=== PATIENT | female | born 1950 | race African-American/Black ===

== ENCOUNTER 2016-06-06 01:27 | Observation (INO) | payer MEDICARE, OTHER ==
[~2016-06-06] VITALS: Ht 170.2 cm; Wt 99.0 kg
[2016-06-06] VITALS (10 sets, daily range): BP systolic 133–210; BP diastolic 53–91; PULSE 79–111; RESP 16–24; TEMP 97.8–98.9; O2SAT 96–99
[~2016-06-06 01:27] MED LIST: ASPI81 PO; ATOR20TA PO; AZAT50 PO; CYCL1PAK PO; FAMO40TA PO; FURO40TA PO; GABA300 PO; HYDR50TA15 PO; LIDO5T TOP; LORTA5 PO; METO50TA PO; POTA10IN2 PO; PRED5 PO; TAZT300C2 PO
[2016-06-06] MEDS ORDERED: SODIUM CHLOR 0.9% 1000 ML INJ 1,000 ML IV SCH (03:05)
[2016-06-06] MEDS ORDERED: MORPHINE SULFATE 4 MG/ML INJ IV PUSH ONE (03:15)
[2016-06-06] MEDS ORDERED: SODIUM CHLORIDE 0.9% FLUSH 5 ML FLUSH IVF PRN (03:15)
[2016-06-06] MEDS ORDERED: ONDANSETRON HCL 4 MG/2 ML VIAL IVP ONE (03:15)
--- NOTE | 2016-06-06 03:15 | PD ---
HPI Chief Complaint: GI Complaint Time Seen by Provider: 02:58 Travel History International Travel<30 days: No Contact w/Intl Traveler<30days: No Traveled to known affect area: No History of Present Illness HPI The patient is a 65-year-old Joanna female who presents emergency department for nausea, vomiting, and abdominal pain. The patient states she recently had laparoscopic cholecystectomy performed at [facility] in [place], [place]. The patient states the surgery was last and she went home on Friday. The patient states she is not feeling well, however, "just wanted to go home ". The patient has not followed up with her primary physician or return to the emergency department at [facility]. The patient states she continues to have nausea, vomiting, and generalized abdominal pain that is worse in the epigastrium. The patient's last oral intake was on Friday night with soup. She has persistent nausea and vomiting and has not had a bowel movement in several days. The patient is unsure if she is had any fever. She denies any chest pain, shortness of breath , or difficulty with urination. The patient's primary physician is Dr. Veras. [facility] Past Medical History Hx Anticoagulant Therapy: Yes (ASA) Autoimmune Disease: No Cancer: Yes (BREAST 16 years ago) Cardiovascular Problems: Yes (HTN) Chemotherapy: Yes (1996) Diminished Hearing: No Endocrine: No Gastrointestinal Disorders: Yes GERD: Yes Genitourinary: No Hiatal Hernia: Yes Hypertension: Yes Immune Disorder: No Musculoskeletal: Yes Neurologic: No Psychiatric: No Reproductive: No Respiratory: No Immunizations Current: Yes Ulcer: No : 4 Para: 3 Miscarriage: 1 Past Surgical History Cholecystectomy: Yes Gynecologic Surgery: Yes (BREAST CA) Hysterectomy: Yes Other Surgery: Yes (BREAST CA, LUMPECTOMY, LYMPH NODE REMOVAL) Social History Alcohol Use: No Tobacco Use: No Substance Use: No Allergies-Medications (Allergen,Severity, Reaction): Coded Allergies: Naprosyn (Unverified Adverse Reaction, Severe, Diarrhea, 06/06/16) Contrast Media (Verified Adverse Reaction, Intermediate, KIDNEY FAILURE, ) Reported Meds & Prescriptions Reported Meds & Active Scripts Active Lidoderm Patch 5% (Lidocaine HCl) 1 Patch Patch 1 Patch TOP DAILY Hydrocodone/Acetaminophen 5 mg/325 mg 1 Tab Tab 1 Tab PO Q4H PRN Neurontin (Gabapentin) 300 Mg Cap 300 Mg PO TID Reported Potassium Chloride CR 10 meq (Potassium Chloride) 10 Meq Cap 1 Cap PO DAILY Taztia Xt 300 Mg (Diltiazem HCl) 300 Mg Cap 300 Mg PO DAILY Deltasone 5 mg Tab (Prednisone) 5 Mg Tab 5 Mg PO BID Atorvastatin 20 mg (Atorvastatin Calcium) 20 Mg Tab 1 Tab PO HS Furosemide 40 Mg Tab 40 Mg PO DAILY Azathioprine 50 Mg Tab 125 Mg PO DAILY Famotidine 40 Mg Tab 40 Mg PO DAILY Apresoline (Hydralazine HCl) 50 Mg Tab 50 Mg PO TID Aspirin 81 Mg Tab 81 Mg PO DAILY Cyclobenzaprine Hcl (Cyclobenzaprine HCl) 10 Mg Tab 10 Mg PO TID Metoprolol Tartrate 50 mg (Metoprolol Tartrate) 50 Mg Tab 200 Mg PO BID Review of Systems Except as stated in HPI: all other systems reviewed are Neg General / Constitutional: No: Fever Cardiovascular: No: Chest Pain or Discomfort Respiratory: No: Shortness of Breath Gastrointestinal: Positive: Nausea, Vomiting, Abdominal Pain, Loss of Appetite , No: Diarrhea Genitourinary: No: Dysuria Musculoskeletal: Positive: Weakness Neurologic: Positive: Weakness Physical Exam Narrative GENERAL: Awake, alert, 65-year-old female who appears her stated age and is in no acute respiratory distress. SKIN: Warm and dry. HEAD: Atraumatic. Normocephalic. EYES: Pupils equal and round. No scleral icterus. No injection or drainage. ENT: No nasal bleeding or discharge. Dry mucous membranes. NECK: Trachea midline. No JVD. CARDIOVASCULAR: Regular, tachycardic with a heart rate of 125. RESPIRATORY: No accessory muscle use. Clear to auscultation. Breath sounds equal bilaterally. GASTROINTESTINAL: Abdomen soft, obese with a large pannus. Surgical dressings still in place. No rebound tenderness. MUSCULOSKELETAL: No obvious deformities. No clubbing. No cyanosis. No edema. NEUROLOGICAL: Awake and alert. No obvious cranial nerve deficits. Motor grossly within normal limits. Normal speech. PSYCHIATRIC: Appropriate mood and affect; insight and judgment normal. Data Data Last Documented VS Vital Signs Date Time Temp Pulse Resp B/P Pulse Ox O2 Delivery O2 Flow Rate FiO2 06/06/16 01:29 98.9 111 24 183/85 98 Room Air Orders Complete Blood Count With Diff (06/06/16 03:05) Comprehensive Metabolic Panel (06/06/16 03:05) Lipase (06/06/16 03:05) Lactic Acid (06/06/16 03:05) Urinalysis - C+S If Indicated (06/06/16 03:05) Ct Abd/Pel W/O Iv Contrast (06/06/16 03:05) Iv Access Insert/Monitor (06/06/16 03:05) Ecg Monitoring (06/06/16 03:05) Oximetry (06/06/16 03:05) Morphine Inj (Morphine Inj) (06/06/16 03:15) Ondansetron Inj (Zofran Inj) (06/06/16 03:15) Sodium Chlor 0.9% 1000 Ml Inj (Ns 1000 M (06/06/16 03:05) Sodium Chloride 0.9% Flush (Ns Flush) (06/06/16 03:15) Electrocardiogram (06/06/16 03:05) Chest, Single Ap (06/06/16 ) Potassium Chlor 20 Meq Premix (Kcl 20 Me (06/06/16 06:15) Admit Order (Ed Use Only) (06/06/16 06:02) Sodium Chlorid 0.9% 500 Ml Inj (Ns 500 M (06/06/16 06:15) Labs Laboratory Tests Test 06/06/16 06/06/16 04:00 05:15 Urine Color YELLOW Urine Turbidity CLEAR Urine pH 5.5 Urine Specific [place] 1.014 Urine Protein TRACE mg/dL Urine Glucose (UA) NEG mg/dL Urine Ketones 150 mg/dL Urine Occult Blood NEG Urine Nitrite NEG Urine Bilirubin NEG Urine Urobilinogen LESS THAN 2.0 MG/DL Urine Leukocyte Esterase NEG Urine RBC LESS THAN 1 /hpf Urine WBC 1 /hpf Urine Squamous Epithelial 2 /hpf Cells Urine Granular Casts 1 /lpf Urine Mucus FEW /lpf Microscopic Urinalysis Comment CULT NOT INDICATED White Blood Count 7.6 TH/MM3 Red Blood Count 3.44 MIL/MM3 Hemoglobin 12.0 GM/DL Hematocrit 33.9 % Mean Corpuscular Volume 98.7 FL Mean Corpuscular Hemoglobin 34.8 PG Mean Corpuscular Hemoglobin 35.3 % Concent Red Cell Distribution Width 16.3 % Platelet Count 250 TH/MM3 Mean Platelet Volume 8.2 FL Neutrophils (%) (Auto) 79.8 % Lymphocytes (%) (Auto) 14.7 % Monocytes (%) (Auto) 4.7 % Eosinophils (%) (Auto) 0.3 % Basophils (%) (Auto) 0.5 % Neutrophils # (Auto) 6.1 TH/MM3 Lymphocytes # (Auto) 1.1 TH/MM3 Monocytes # (Auto) 0.4 TH/MM3 Eosinophils # (Auto) 0.0 TH/MM3 Basophils # (Auto) 0.0 TH/MM3 CBC Comment DIFF FINAL Differential Comment Sodium Level 140 MEQ/L Potassium Level 2.7 MEQ/L Chloride Level 103 MEQ/L Carbon Dioxide Level 15.3 MEQ/L Anion Gap 22 MEQ/L Blood Urea Nitrogen 5 MG/DL Creatinine 0.56 MG/DL Estimat Glomerular Filtration 131 ML/MIN Rate Random Glucose 61 MG/DL Lactic Acid Level 1.1 mmol/L Calcium Level 8.8 MG/DL Total Bilirubin 1.9 MG/DL Aspartate Amino Transf 26 U/L (AST/SGOT) Alanine Aminotransferase 31 U/L (ALT/SGPT) Alkaline Phosphatase 143 U/L Total Protein 6.6 GM/DL Albumin 3.4 GM/DL Lipase 77 U/L [facility] Medical Decision Making Medical Screen Exam Complete: Yes Emergency Medical Condition: Yes Medical Record Reviewed: Yes Interpretation(s) EKG reveals normal sinus rhythm with a rate 83. Nonspecific ST-T wave changes. Laboratory Tests Test 06/06/16 06/06/16 04:00 05:15 Urine Color YELLOW Urine Turbidity CLEAR Urine pH 5.5 Urine Specific [place] 1.014 Urine Protein TRACE mg/dL Urine Glucose (UA) NEG mg/dL Urine Ketones 150 mg/dL Urine Occult Blood NEG Urine Nitrite NEG Urine Bilirubin NEG Urine Urobilinogen LESS THAN 2.0 MG/DL Urine Leukocyte Esterase NEG Urine RBC LESS THAN 1 /hpf Urine WBC 1 /hpf Urine Squamous Epithelial 2 /hpf Cells Urine Granular Casts 1 /lpf Urine Mucus FEW /lpf Microscopic Urinalysis Comment CULT NOT INDICATED White Blood Count 7.6 TH/MM3 Red Blood Count 3.44 MIL/MM3 Hemoglobin 12.0 GM/DL Hematocrit 33.9 % Mean Corpuscular Volume 98.7 FL Mean Corpuscular Hemoglobin 34.8 PG Mean Corpuscular Hemoglobin 35.3 % Concent Red Cell Distribution Width 16.3 % Platelet Count 250 TH/MM3 Mean Platelet Volume 8.2 FL Neutrophils (%) (Auto) 79.8 % Lymphocytes (%) (Auto) 14.7 % Monocytes (%) (Auto) 4.7 % Eosinophils (%) (Auto) 0.3 % Basophils (%) (Auto) 0.5 % Neutrophils # (Auto) 6.1 TH/MM3 Lymphocytes # (Auto) 1.1 TH/MM3 Monocytes # (Auto) 0.4 TH/MM3 Eosinophils # (Auto) 0.0 TH/MM3 Basophils # (Auto) 0.0 TH/MM3 CBC Comment DIFF FINAL Differential Comment Sodium Level 140 MEQ/L Potassium Level 2.7 MEQ/L Chloride Level 103 MEQ/L Carbon Dioxide Level 15.3 MEQ/L Anion Gap 22 MEQ/L Blood Urea Nitrogen 5 MG/DL Creatinine 0.56 MG/DL Estimat Glomerular Filtration 131 ML/MIN Rate Random Glucose 61 MG/DL Lactic Acid Level 1.1 mmol/L Calcium Level 8.8 MG/DL Total Bilirubin 1.9 MG/DL Aspartate Amino Transf 26 U/L (AST/SGOT) Alanine Aminotransferase 31 U/L (ALT/SGPT) Alkaline Phosphatase 143 U/L Total Protein 6.6 GM/DL Albumin 3.4 GM/DL Lipase 77 U/L CT of the abdomen and pelvis reveals expected postoperative findings. Tiny left kidney stone. Soft tissue mass in the right perianal region. Differential Diagnosis Differential diagnosis includes retained biliary stone, gastritis, postoperative infection, peptic ulcer disease, gastritis, gastroparesis, dehydration, electrolyte abnormality. Narrative Course IV was established, labs were drawn and sent, and the patient was placed on cardiac telemetry monitoring and continuous pulse oximetry monitoring. We attempted to obtain records from [facility]. The patient was administered morphine, Zofran, and IV fluids. CT of the abdomen and pelvis was ordered. However, the patient's IVs blew. I evaluated the patient's upper extremities with ultrasound bilaterally, she had no good peripheral IV access the ultrasound. I didn't evaluated the neck for external jugulars, however, they were small and ultrasound. Therefore, after the risk and benefits of internal jugular cannulization with the patient, as agreed a central line would be placed. I placed a central line in the right internal jugular without any visible complications. Postprocedure chest x-ray was obtained. Patient's UA revealed 150 ketones. Potassium is low at 2.7, consistent with hypokalemia secondary denies a/vomiting and dehydration secondary denies any/vomiting. The patient was administered 1.5 L of IV fluids via bolus and potassium 20 mEq intravenously 2, no potassium was administered by mouth initially secondary to persistent nausea. The patient is CO2 on BMP was 15.3, most likely secondary to dehydration. Lactic acid is normal 1.1. White count was normal. CT of the abdomen and pelvis reveals postoperative changes and soft tissue mass in the perianal region. The patient will be admitted for replacement of potassium and IV fluids. Procedures Procedure Narrative CENTRAL VENOUS LINE: The site was prepped with Betadine and sterilely draped. It was infiltrated with 1% lidocaine plain. The deep vein was cannulated using normal Seldinger technique. A central line was placed in the right internal jugular site and secured with simple interrupted suture. The site was sterilely dressed. The patient tolerated the procedure well. Physician Communication Physician Communication I discussed the patient with Dr. Montesinos who agrees with 23 hour observation. Diagnosis Primary Impression: Dehydration Additional Impressions: Nausea & vomiting Qualified Code: R11.2 - Non-intractable vomiting with nausea, unspecified vomiting type Hypokalemia Condition: Stable Brett Silver MD Jun 06, 2016 03:15
[2016-06-06 05:30] LABS: AUTOMATED NEUTROPHIL # 6.1 TH/MM3 (1.8-7.7); BASOPHIL % 0.5 % (0.0-2.0); EOSINOPHIL % 0.3 % (0.0-4.0); HEMATOCRIT 33.9 % (35.0-46.0); HEMO FLAGS DIFF FINAL; LYMPH % 14.7 % (9.0-44.0); LYMPHOCYTE # 1.1 TH/MM3 (1.0-4.8); MEAN CELL VOLUME 98.7 FL (80.0-100.0); MEAN CORPUSCULAR HEMOGLOBIN 34.8 PG (27.0-34.0); MEAN CORPUSCULAR HGB CONC 35.3 % (32.0-36.0); MONO % 4.7 % (0.0-8.0); NEUT % 79.8 % (16.0-70.0); PLATELET COUNT 250 TH/MM3 (150-450); RED BLOOD COUNT 3.44 MIL/MM3 (4.00-5.30); RED CELL DISTRIBUTION WIDTH 16.3 % (11.6-17.2); WHITE BLOOD COUNT 7.6 TH/MM3 (4.0-11.0)
[2016-06-06 05:34] LABS: BLOOD, URINE NEG (NEG); COMMENT (UR) CULT NOT INDICATED; CULTURE IF INDICATED CULT NOT INDICATED; GLUCOSE,URINE NEG (NEG); GRANULAR CAST, URINE 1 /lpf; KETONE, URINE 150 mg/dL (NEG); MUCUS URINE FEW /lpf (OCC); NITRITE,URINE NEG (NEG); PH, URINE 5.5 (5.0-8.5); SQUAMOUS EPITHELIAL CELL URINE 2 /hpf (0-5); URINE COLOR YELLOW (YELLW/STRAW)
[2016-06-06 05:53] LABS: ALKALINE PHOSPHATASE 143 U/L (45-117); ALT (GPT) 31 U/L (10-53); ANION GAP 22 MEQ/L (5-15); AST (GOT) 26 U/L (15-37); BICARBONATE 15.3 MEQ/L (21.0-32.0); BLOOD UREA NITROGEN 5 MG/DL (7-18); CHLORIDE 103 MEQ/L (98-107); GLOMERULAR FILTRATION RATE 131 ML/MIN (>89); SODIUM (NA) 140 MEQ/L (136-145); TOTAL BILIRUBIN ADULT 1.9 MG/DL (0.2-1.0)
[2016-06-06 05:55] LABS: POTASSIUM 2.7 MEQ/L (3.5-5.1)
[2016-06-06] MEDS ORDERED: SODIUM CHLORID 0.9% 500 ML INJ 500 ML IV ONE (06:15)
--- NOTE | 2016-06-06 06:30 | RADRPT ---
EXAM DATE/TIME: 06/06/2016 05:33 [facility] COMPARISON: CHEST PA & LAT, March 24, 2012, 8:20. CHEST BILATERAL DECUBITUS, March 24, 2012, 14:19. INDICATIONS : Post central line placemnet. MEDICAL HISTORY : Encephalitis. SURGICAL HISTORY : ENCOUNTER: Initial ACUITY: 1 day PAIN SCORE: 1/10 LOCATION: Bilateral chest FINDINGS: Right neck central line is present in satisfactory position. No evidence of pneumothorax or other com plication of placement. As minimal parenchymal opacity at the left lung base. Right lung is clear. No significant effusion. Cardiomediastinal contours are satisfactory. Surgical clips in the left axilla ry region. CONCLUSION: Central line in good position. No pneumothorax. Joseph Collins MD on June 06, 2016 at 6:27 Board Certified Radiologist. This report was verified electronically.
--- NOTE | 2016-06-06 06:37 | RADRPT ---
EXAM DATE/TIME: 06/06/2016 05:47 [facility] COMPARISON: No previous studies available for comparison. INDICATIONS : Status post lap bear 05/30/16, continues to have pain with nausea and vomiting. ORAL CONTRAST: No oral contrast ingested. RADIATION DOSE: 22.90 CTDIvol (mGy) MEDICAL HISTORY : Hernia, hiatal. Hypertension. SURGICAL HISTORY : Cholecystectomy. Hysterectomy. ENCOUNTER: Initial ACUITY: 1 week PAIN SCALE: 9/10 LOCATION: abdomen TECHNIQUE: Volumetric scanning of the abdomen and pelvis was performed. Using automated exposure control and ad justment of the mA and/or kV according to patient size, radiation dose was kept as low as reasonably achievable to obtain optimal diagnostic quality images. FINDINGS: LOWER LUNGS: Elevation or eventration of the left diaphragm with mild atelectasis at the left lung base. LIVER: No evidence of focal mass or biliary ductal dilatation. Gallbladder surgically absent. Mild induratio n in the subcutaneous tissues overlying the liver and minimal air in or along the anterior abdominal wall consistent with recent postoperative state. SPLEEN: Normal size without lesion. PANCREAS: Within normal limits. KIDNEYS: Tiny nonobstructing lower pole kidney stone on the left. ADRENAL GLANDS: Within normal limits. VASCULAR: There is no aortic aneurysm. BOWEL/MESENTERY: 2.7 cm soft tissue density nodule in the right perianal soft tissues. The bowel structures appear nor mal in caliber throughout. ABDOMINAL WALL: Tiny fat containing umbilical hernia. No incarceration. RETROPERITONEUM: There is no lymphadenopathy. BLADDER: No wall thickening or mass. REPRODUCTIVE: Uterus surgically absent. No evidence of pelvic mass or free pelvic fluid INGUINAL: There is no lymphadenopathy or hernia. MUSCULOSKELETAL: Within normal limits for patient age. CONCLUSION: Expected postoperative findings. Tiny left kidney stone. Soft tissue mass in the right perianal region Joseph Collins MD on June 06, 2016 at 6:29 Board Certified Radiologist. This report was verified electronically.
[2016-06-06] MEDS ORDERED: SODIUM CHLORIDE 0.9% FLUSH 5 ML FLUSH FLUSH PRN (06:45)
[2016-06-06] MEDS ORDERED: NALOXONE HCL 0.4 MG/ML AMP IV PRN (06:45)
[2016-06-06] MEDS ORDERED: ONDANSETRON HCL 4 MG/2 ML VIAL IVP PRN (06:45)
[2016-06-06] MEDS: POTASSIUM CHLOR 20 MEQ PREMIX 100 ML IV SCH ×2 (06:59→09:09)
[2016-06-06] MEDS ORDERED: POTA10TA2 PO (07:34)
[2016-06-06] MEDS ORDERED: GABA600T PO (07:34)
[2016-06-06] MEDS ORDERED: ASPI-110 PO (07:34)
[2016-06-06] MEDS ORDERED: HYDR50TA15 PO (07:34)
[2016-06-06] MEDS ORDERED: CART300C PO (07:34)
[2016-06-06] MEDS ORDERED: ZOFR4TAB3 SL (07:34)
[2016-06-06] MEDS ORDERED: OXYC1TAB36 PO (07:34)
[2016-06-06] MEDS ORDERED: ATOR20TA15 PO (07:34)
[2016-06-06] MEDS ORDERED: TIZA4CAP3 PO (07:34)
[2016-06-06] MEDS ORDERED: PRED5TAB PO (07:34)
[2016-06-06] MEDS ORDERED: METO100T PO (07:34)
[2016-06-06] MEDS ORDERED: OXYC-432 PO (07:34)
[2016-06-06] MEDS ORDERED: AZAT50 PO (07:34)
[2016-06-06] MEDS: SODIUM CHLORIDE 0.9% FLUSH 5 ML FLUSH FLUSH SCH ×2 (08:10→21:37)
[2016-06-06 08:11] LABS: MAGNESIUM 1.6 MG/DL (1.5-2.5)
--- NOTE | 2016-06-06 11:50 | HHI.HP ---
HPI Service [facility] Primary Care Physician Travis Dowling M.D. Admission Diagnosis persistent nausea/vomiting, hypokalemia, dehydration, status post ch Diagnoses: Chief Complaint: Nausea vomiting diarrhea Travel History International Travel<30 Days: No Contact w/Intl Traveler <30 Da: No Traveled to Known Affected Are: No History of Present Illness 65 years old female who recently had laparoscopic cholecystectomy and [facility] about a week ago due to problem with nausea and vomiting, however patient came back again today with worsening nausea vomiting and diarrhea which is mucus, no fever or chills, some nonspecific abdominal pain on and off. In general patient is not the best historian, she told me this problem with nausea vomiting has been going on for months and for which she had a laparoscopic cholecystectomy. Patient denied dysuria urgency or frequency headache blurry vision chest pain or short of breath, orthopnea PND or leg swelling. In ED CT scan of the abdomen showed Left kidney stone in the right soft tissue mass in the perianal region, her BMP showed hypokalemia and metabolic acidosis with bicarbonate of 15 on my central line has been inserted. She was given a bolus of potassium. When I saw her she was in bed, nausea has been subsided. Patient told me she go to the bathroom about 2-3 times a day but its liquidy and with mucus, she vomited about also 2-3 times a day. I noticed that the patient taking Imuran and prednisone which does have side effect of nausea vomiting and diarrhea and GI hypersensitivity, however patient stated that she takes Imuran and prednisone for generalized aching which is not consistent for these medication indication, she is not aware of any Crohn's ulcerative colitis or rheumatoid arthritis, will try to obtain her record at the same time will obtain GI consultation and we will revise supportive care for her dehydration Review of Systems Other All 10 systems reviewed and was positive for what is mentioned in history of present illness otherwise negative Past Family Social History Past Medical History History of left breast cancer status post lumpectomy chemotherapy therapy and radiation therapy Hypertension Hyperlipidemia Past Surgical History Hysterectomy and left breast lumpectomy Allergies: Coded Allergies: Naprosyn (Unverified Adverse Reaction, Severe, Diarrhea, 06/06/16) Contrast Media (Verified Adverse Reaction, Intermediate, KIDNEY FAILURE, ) Family History History of breast cancer in her sister and her daughter Social History Denied tobacco alcohol or illicit drug abuse Physical Exam Vital Signs Vital Signs Date Time Temp Pulse Resp B/P Pulse Ox O2 Delivery O2 Flow Rate FiO2 06/06/16 10:40 95 16 180/76 98 Room Air 06/06/16 09:15 79 18 160/86 99 Room Air 06/06/16 07:00 90 16 133/61 96 Room Air 06/06/16 01:29 98.9 111 24 183/85 98 Room Air Physical Exam GENERAL: This is a well-nourished, well-developed patient, in no apparent distress. SKIN: No rashes, warm and dry HEAD: Atraumatic. Normocephalic. EYES: Pupils equal round and reactive. Extraocular motions intact. No scleral icterus. ENT: Nose without bleeding, or drainage, Airway patent. NECK: Trachea midline. Supple CARDIOVASCULAR: Regular rate and rhythm without murmurs, gallops, or rubs. RESPIRATORY: Fair air entry bilaterally. No wheezes, rales, or rhonchi. GASTROINTESTINAL: Abdomen soft, non-tender, nondistended. Positive bowel sounds MUSCULOSKELETAL: Extremities without clubbing, cyanosis, or edema. Pedal pulses appreciated NEUROLOGICAL: Awake and alert. Moves all extremity. Normal speech.no focal neurological deficit Laboratory Laboratory Tests Test 06/06/16 06/06/16 04:00 05:15 Urine Color YELLOW Urine Turbidity CLEAR Urine pH 5.5 Urine Specific [place] 1.014 Urine Protein TRACE Urine Glucose (UA) NEG Urine Ketones 150 Urine Occult Blood NEG Urine Nitrite NEG Urine Bilirubin NEG Urine Urobilinogen LESS THAN 2.0 Urine Leukocyte Esterase NEG Urine RBC LESS THAN 1 Urine WBC 1 Urine Squamous Epithelial 2 Cells Urine Granular Casts 1 Urine Mucus FEW Microscopic Urinalysis Comment CULT NOT INDICATED White Blood Count 7.6 Red Blood Count 3.44 Hemoglobin 12.0 Hematocrit 33.9 Mean Corpuscular Volume 98.7 Mean Corpuscular Hemoglobin 34.8 Mean Corpuscular Hemoglobin 35.3 Concent Red Cell Distribution Width 16.3 Platelet Count 250 Mean Platelet Volume 8.2 Neutrophils (%) (Auto) 79.8 Lymphocytes (%) (Auto) 14.7 Monocytes (%) (Auto) 4.7 Eosinophils (%) (Auto) 0.3 Basophils (%) (Auto) 0.5 Neutrophils # (Auto) 6.1 Lymphocytes # (Auto) 1.1 Monocytes # (Auto) 0.4 Eosinophils # (Auto) 0.0 Basophils # (Auto) 0.0 CBC Comment DIFF FINAL Differential Comment Sodium Level 140 Potassium Level 2.7 Chloride Level 103 Carbon Dioxide Level 15.3 Anion Gap 22 Blood Urea Nitrogen 5 Creatinine 0.56 Estimat Glomerular Filtration 131 Rate Random Glucose 61 Lactic Acid Level 1.1 Calcium Level 8.8 Magnesium Level 1.6 Total Bilirubin 1.9 Aspartate Amino Transf 26 (AST/SGOT) Alanine Aminotransferase 31 (ALT/SGPT) Alkaline Phosphatase 143 Total Protein 6.6 Albumin 3.4 Lipase 77 Result Diagram: 06/06/1651406/06/16514 Imaging Last Impressions Abdomen/Pelvis CT 06/06/16 0305 Signed Impressions: Service Date/Time: May 05:47 - CONCLUSION: Expected postoperative findings. Tiny left kidney stone. Soft tissue mass in the right perianal region Joseph Collins MD Chest X-Ray 06/06/16 0000 Signed Impressions: Service Date/Time: May 05:33 - CONCLUSION: Central line in good position. No pneumothorax. Joseph Collins MD Assessment and Plan Assessment and Plan 65 years old female admitted with Persistent nausea vomiting and diarrhea, with history of one week postop laparoscopic cholecystectomy Nausea vomiting diarrhea rule out gastroenteritis versus drug side effect ( Imuran), versus urinary lithiasis related versus other etiology Dehydration with Metabolic acidosis with a bicarbonate of 15 Hypokalemia mostly due to diarrhea Elevated bilirubin and alkaline phosphatase Recent laparoscopic cholecystectomy one week ago Left kidney stone on CT scan without hydronephrosis History of breast cancer status post lobectomy chemoradiation in 97 Uncontrolled Hypertension Hyperlipidemia DVT prophylaxis Plan: Admit to observation Continue iv fluids with KCl Send stool for culture WBC ova and parasites C. difficile Monitor BMP and electrolytes Consul gastroenterology for possible need of EGD or colonoscopy(vision stated she had colonoscopy recently and [facility] will try to obtain the record) We we will hold Imuran until we obtain record from her PCP office regarding the indication Will resume her medication for blood pressure she is on hydralazine 50 twice a day and Cardizem 300 CD as well as metoprolol, will add Vasotec and clonidine as needed DT prophylaxis with heparin and SCD Discussed Condition With D/W nurse and patient Mekhi Paniagua MD Jun 06, 2016 11:50
[2016-06-06] MEDS: ASPIRIN EC 81 MG TABEC PO SCH (13:47)
[2016-06-06] MEDS: DILTIAZEM-CD 300 MG CAP ER PO SCH (13:47)
--- NOTE | 2016-06-06 14:46 | PD.CONS ---
HPI History of Present Illness This is a 65 year old female patient who came to the ER for evaluation of nausea , vomiting, diarrhea, and abdominal pain. She was recently hospitalized at [facility] for a week and discharged on Friday for the same symptoms. She had a cholecystectomy on . She states she was not really feeling better afterwards, but just wanted to go home. She reports that she had actually been having symptoms for about a month before she went to the ER. She has an intermittent sharp pain in her mid abdominal area that radiates to her back and chest. She has associated nausea/vomiting, consisting of orange or bilious material. She denies fever, chills, bloating. She has been having 2 loose stools per day with no blood or black stool, but a large amount of mucous. Her symptoms do seem to be aggravated by PO intake. There are no alleviating factors. She was started on Imuran and Prednisone in 2011 for vasculitis. She states that she was seen by Dr. Roberts at this facility and has been on these medications ever since. She continues to follow with him. She last had a colonoscopy "years ago" nothing recently. She was recently hospitalized and on antibiotics. (Ana Laura Truong) PFSH Past Medical History Vasculitis- on Imuran and Prednisone, followed by Dr. Roberts. History of left breast cancer, S/P lumpectomy chemotherapy therapy and radiation therapy Hypertension Hyperlipidemia Vasculitis Arthritis COPD GERD History of gastritis Peripheral neuropathy Sliding hiatal hernia Past Surgical History Hysterectomy Left breast lumpectomy Recent lap. cholecystectomy Colonoscopy years ago (Ana Laura Truong) Coded Allergies: Naprosyn (Unverified Adverse Reaction, Severe, Diarrhea, 06/06/16) Contrast Media (Verified Adverse Reaction, Intermediate, KIDNEY FAILURE, ) Medications Allergies Coded Allergies Type Severity Reaction Last Updated Verified Naprosyn Adverse Reaction Severe Diarrhea 06/06/16 No Contrast Media Adverse Reaction Intermediate KIDNEY FAILURE 06/06/16 Yes Active Scripts Medications Dose Route/Sig Days Date Category Dose Instructions Atorvastatin (Atorvastatin Calcium) 20 Mg Tab 20 Mg PO HS 06/06/16 Reported Oxycodone-Acetaminophen 10-325 mg Tab 1 Tab PO Q6H PRN 06/06/16 Reported Tizanidine (Tizanidine HCl) 4 Mg Cap 4 Mg PO HS 06/06/16 Reported Oxycodone-Acetaminophen 5-325 mg Tab 1 Tab PO Q4H PRN 06/06/16 Reported Aspirin 81 (Aspirin) 81 Mg Tabdr 81 Mg PO DAILY 06/06/16 Reported Prednisone 5 Mg Tab 5 Mg PO EVERY OTHER DAY 06/06/16 Reported Azathioprine 50 Mg Tab 100 Mg PO BID 06/06/16 Reported Hazardous agent use appropriate precautions for handling and disposal. Cartia Xt (Diltiazem ER 24 HR) 300 Mg Caper 300 Mg PO DAILY 06/06/16 Reported Potassium Chloride ER (Potassium Chloride) 10 Meq Tab 10 Meq PO DAILY 06/06/16 Reported Metoprolol Tartrate 100 Mg Tab 200 Mg PO BID 06/06/16 Reported Zofran Odt (Ondansetron Odt) 4 Mg Tab 4 Mg SL Q6HR PRN 06/06/16 Reported Hydralazine (Hydralazine HCl) 50 Mg Tab 50 Mg PO BID 06/06/16 Reported Take with a meal Gabapentin 600 Mg Tab 600 Mg PO DAILY 06/06/16 Reported Family History History of breast cancer in her sister and her daughter Social History Denied tobacco alcohol or illicit drug abuse (Ana Laura Truong) Review of Systems Constitutional: COMPLAINS OF: Fatigue, DENIES: Weight loss Respiratory: DENIES: Cough, Shortness of breath Cardiovascular: DENIES: Chest pain Gastrointestinal: COMPLAINS OF: Abdominal pain, Diarrhea, Nausea, Vomiting, DENIES: Swelling of Abdomen, Heartburn Musculoskeletal: COMPLAINS OF: Joint pain Hematologic/lymphatic: DENIES: Bruising Neurologic: DENIES: Headache Psychiatric: DENIES: Confusion (Ana Laura Truong) GI Exam Vitals I&O Vital Signs Date Time Temp Pulse Resp B/P Pulse Ox O2 Delivery O2 Flow Rate FiO2 06/06/16 14:25 96 15 156/68 06/06/16 12:36 88 18 169/76 98 Room Air 06/06/16 10:40 95 16 180/76 98 Room Air 06/06/16 09:15 79 18 160/86 99 Room Air 06/06/16 07:00 90 16 133/61 96 Room Air 06/06/16 01:29 98.9 111 24 183/85 98 Room Air Imaging Last Impressions Abdomen/Pelvis CT 06/06/16 0300 Signed Impressions: Service Date/Time: May 05:47 - CONCLUSION: Expected postoperative findings. Tiny left kidney stone. Soft tissue mass in the right perianal region Joseph Collins MD Chest X-Ray 06/06/16 0000 Signed Impressions: Service Date/Time: May 05:33 - CONCLUSION: Central line in good position. No pneumothorax. Joseph Collins MD Laboratory Test 06/06/16 06/06/16 06/06/16 04:00 05:15 11:17 Urine Color YELLOW Urine Turbidity CLEAR Urine pH 5.5 Urine Specific [place] 1.014 Urine Protein TRACE mg/dL Urine Glucose (UA) NEG mg/dL Urine Ketones 150 mg/dL Urine Occult Blood NEG Urine Nitrite NEG Urine Bilirubin NEG Urine Urobilinogen LESS THAN 2.0 MG/DL Urine Leukocyte Esterase NEG Urine RBC LESS THAN 1 /hpf Urine WBC 1 /hpf Urine Squamous Epithelial 2 /hpf Cells Urine Granular Casts 1 /lpf Urine Mucus FEW /lpf Microscopic Urinalysis Comment CULT NOT INDICATED White Blood Count 7.6 TH/MM3 Red Blood Count 3.44 MIL/MM3 Hemoglobin 12.0 GM/DL Hematocrit 33.9 % Mean Corpuscular Volume 98.7 FL Mean Corpuscular Hemoglobin 34.8 PG Mean Corpuscular Hemoglobin 35.3 % Concent Red Cell Distribution Width 16.3 % Platelet Count 250 TH/MM3 Mean Platelet Volume 8.2 FL Neutrophils (%) (Auto) 79.8 % Lymphocytes (%) (Auto) 14.7 % Monocytes (%) (Auto) 4.7 % Eosinophils (%) (Auto) 0.3 % Basophils (%) (Auto) 0.5 % Neutrophils # (Auto) 6.1 TH/MM3 Lymphocytes # (Auto) 1.1 TH/MM3 Monocytes # (Auto) 0.4 TH/MM3 Eosinophils # (Auto) 0.0 TH/MM3 Basophils # (Auto) 0.0 TH/MM3 CBC Comment DIFF FINAL Differential Comment Sodium Level 140 MEQ/L Potassium Level 2.7 MEQ/L 3.5 MEQ/L Chloride Level 103 MEQ/L Carbon Dioxide Level 15.3 MEQ/L Anion Gap 22 MEQ/L Blood Urea Nitrogen 5 MG/DL Creatinine 0.56 MG/DL Estimat Glomerular Filtration 131 ML/MIN Rate Random Glucose 61 MG/DL Lactic Acid Level 1.1 mmol/L Calcium Level 8.8 MG/DL Magnesium Level 1.6 MG/DL Total Bilirubin 1.9 MG/DL Aspartate Amino Transf 26 U/L (AST/SGOT) Alanine Aminotransferase 31 U/L (ALT/SGPT) Alkaline Phosphatase 143 U/L Total Protein 6.6 GM/DL Albumin 3.4 GM/DL Lipase 77 U/L Physical Examination HEENT: Normocephalic; atraumatic; no jaundice. Throat is clear. NECK: Neck is supple, no JVD, no lymphadenopathy. CHEST: CTA. CARDIAC: RRR ABDOMEN: Soft, nondistended, midabdominal tenderness; no hepatosplenomegaly; bowel sounds are present in all four quadrants. EXTREMITIES: No clubbing, cyanosis, or edema. SKIN: Normal; no rash; no jaundice. BRIDGE CRANE OPERATOR: No focal deficits; alert and oriented times three. (Ana Laura Truong) Assessment and Plan Plan ASSESSMENT: - N/V/D with abdominal pain. She has had symptoms x 1 month and was recently hospitalized for one week at [facility] for the same symptoms and underwent a laparoscopic cholecystectomy last . She was discharged home on Friday but has continued to have the symptoms. She is having an intermittent sharp pain in her mid abdominal area that radiates to her back and chest with associated nausea/vomiting, diarrhea Consisting of 2 loose stools per day with a large amount of mucus but no blood. Of note she is followed by Dr. santana for vasculitis, diagnosed in 2011. She's currently on Imuran and prednisone for this. Her last colonoscopy was many years ago. She was recently hospitalized and on antibiotics. CT scan abdomen and pelvis without IV contrast (06/06/16) revealed expected postoperative findings, tiny left kidney stone, soft tissue mass in the right perianal region Will plan for egd/colonoscopy in am, stool studies. - Mild elevation of LFTs. Total bilirubin 1.9, AST 26, ALT 31, alkaline phosphatase 143. Of note she recently had a cholecystectomy. She is also on azathioprine for vasculitis - Abn. imaging with soft tissue mass in right perianal region. - Vasculitis. On Imuran and prednisone at home, followed by Dr. Roberts - Hypertension, hyperlipidemia, her primary PLAN: - Plan for egd/colonoscopy in am - Obtain consents - Clear liquids - NPO after MN - Golytely prep - Stool studies - Cont. Azathioprine - Add Prednisone 5mg po every other day- home dose for vasculitis - Hold heparin after mn - Protonix - Supportive care - Further recommendations to follow based on results of above - Pt seen and examined by Dr. Henderson and myself and this note is written on his behalf (Ana Laura Truong) Physician Comments Seen and examined with Ms. Dionne HUDDLESTON, egd/colonoscopy planned for tomorrow. Monitor labs. Will follow, thank you (Baiely Henderson MD) Ana Laura Truong Jun 06, 2016 14:46 Bailey Henderson MD Jun 06, 2016 16:54
[2016-06-06] MEDS ORDERED: PEG (High)/E-LYTE SOLN 4000 ML BTL PO ONE (16:00)
[2016-06-06] MEDS ORDERED: cloNIDine HCL 0.1 MG TAB PO PRN ×2 (16:15→16:30)
[2016-06-06] MEDS ORDERED: ENALAPRILAT 1.25 MG/ML VIAL IV PUSH PRN (16:15)
[2016-06-06] MEDS ORDERED: LIDOCAINE HCL 1% 50 ML VIAL ONE (16:43)
[2016-06-06] MEDS ORDERED: hydrALAZINE HCL 50 MG TAB PO ONE (17:30)
[2016-06-06] MEDS ORDERED: LIDOCAINE HCL 1% 50 ML VIAL I-DERMAL ONE (17:45)
[2016-06-06] MEDS: HEPARIN SODIUM - SQ 10,000 UNITS/ML VIAL SQ SCH ×2 (18:32→21:36)
[2016-06-06] MEDS: PANTOPRAZOLE SODIUM 40 MG VIAL IV PUSH SCH (18:33)
[2016-06-06] MEDS: NS + KCL 20 MEQ INJ 1,000 ML IV SCH ×2 (19:42→23:25)
[2016-06-06 20:54] LABS: BICARBONATE 17.8 MEQ/L (21.0-32.0); MAGNESIUM 1.5 MG/DL (1.5-2.5); POTASSIUM 3.2 MEQ/L (3.5-5.1)
--- NOTE | 2016-06-06 20:58 | EKG ---
Date Performed: 06/06/2016 Time Performed: 04:00:54 PTAGE: 65 years EKG: Sinus rhythm NONSPECIFIC ST & T-WAVE ABNORMALITY BORDERLINE ECG PREVIOUS TRACING : 06/27/2014 21.14 DOCTOR: Valdo Martinez Interpretating Date/Time 06/06/2016 20:55:51
[2016-06-06] MEDS: METOPROLOL TARTRATE 100 MG TAB PO SCH (21:35)
[2016-06-06] MEDS: hydrALAZINE HCL 50 MG TAB PO SCH (21:35)
[2016-06-06] MEDS: ATORVASTATIN 20 MG TAB PO SCH (21:36)
[2016-06-06] MEDS: azaTHIOprine 50 MG TAB PO SCH (21:36)
[2016-06-07] VITALS (9 sets, daily range): BP systolic 117–149; BP diastolic 52–78; PULSE 58–68; RESP 16–19; TEMP 97.6–98.8; O2SAT 96–98
[2016-06-07] MEDS: MORPHINE SULFATE 4 MG/ML INJ IV PUSH PRN ×3 (00:10→22:01)
[2016-06-07 09:08] LABS: AUTOMATED NEUTROPHIL # 4.4 TH/MM3 (1.8-7.7); BASOPHIL % 0.7 % (0.0-2.0); EOSINOPHIL # 0.1 TH/MM3 (0-0.4); EOSINOPHIL % 1.9 % (0.0-4.0); HEMATOCRIT 31.5 % (35.0-46.0); HEMO FLAGS DIFF FINAL; LYMPH % 18.6 % (9.0-44.0); LYMPHOCYTE # 1.1 TH/MM3 (1.0-4.8); MEAN CELL VOLUME 100.4 FL (80.0-100.0); MEAN CORPUSCULAR HEMOGLOBIN 35.4 PG (27.0-34.0); MEAN CORPUSCULAR HGB CONC 35.3 % (32.0-36.0); MONO % 3.9 % (0.0-8.0); NEUT % 74.9 % (16.0-70.0); PLATELET COUNT 255 TH/MM3 (150-450); RED BLOOD COUNT 3.14 MIL/MM3 (4.00-5.30); RED CELL DISTRIBUTION WIDTH 16.5 % (11.6-17.2); WHITE BLOOD COUNT 5.9 TH/MM3 (4.0-11.0)
[2016-06-07 09:43] LABS: BICARBONATE 16.2 MEQ/L (21.0-32.0); POTASSIUM 3.9 MEQ/L (3.5-5.1)
[2016-06-07] MEDS ORDERED: PROPOFOL 200 MG/20 ML AMP IV ONE (11:17)
[2016-06-07] MEDS: DILTIAZEM-CD 300 MG CAP ER PO SCH (12:24)
[2016-06-07] MEDS: METOPROLOL TARTRATE 100 MG TAB PO SCH ×2 (12:25→21:59)
[2016-06-07] MEDS: azaTHIOprine 50 MG TAB PO SCH ×2 (12:25→21:59)
[2016-06-07] MEDS: GABAPENTIN 300 MG CAP PO SCH (12:25)
[2016-06-07] MEDS: hydrALAZINE HCL 50 MG TAB PO SCH ×2 (12:25→21:59)
[2016-06-07] MEDS: ASPIRIN EC 81 MG TABEC PO SCH (12:25)
[2016-06-07] MEDS: SODIUM CHLORIDE 0.9% FLUSH 5 ML FLUSH FLUSH SCH ×2 (12:26→21:58)
[2016-06-07] MEDS: NS + KCL 20 MEQ INJ 1,000 ML IV SCH ×2 (12:27→22:00)
--- NOTE | 2016-06-07 15:24 | HHI.PR ---
Subjective Remarks patient laying in bed, her nausea is much better today, no diarrhea or loose stool bowel movement He is status post EGD and colonoscopy which showed esophagitis and gastritis and diverticulosis There BMP still showing acidosis with anion gap drop on on and continue with hydration Objective Vitals Vital Signs Date Time Temp Pulse Resp B/P Pulse Ox O2 Delivery O2 Flow Rate FiO2 06/07/16 12:30 97.6 67 19 146/56 97 06/07/16 11:52 70 16 141/54 98 06/07/16 11:49 71 18 140/56 94 06/07/16 11:42 98.5 71 16 140/51 98 06/07/16 10:32 97.9 65 18 117/77 98 06/07/16 08:00 98.8 64 16 135/58 97 06/07/16 04:00 98.0 68 18 141/78 98 06/07/16 03:15 14 06/07/16 00:27 98.8 67 16 141/78 98 06/06/16 20:14 97.8 87 21 149/53 98 06/06/16 20:00 82 06/06/16 16:05 98.5 94 20 210/91 99 06/06/16 16:00 81 I/O 06/06/16 06/06/16 06/06/16 06/07/16 06/07/16 06/07/16 07:00 15:00 23:00 07:00 15:00 23:00 Intake Total 425 ml Output Total 300 ml Balance -300 ml 425 ml Intake IV Total 425 ml Output Urine Total 300 ml # Voids 1 Result Diagram: 06/07/1682206/07/1623 Objective Remarks GENERAL: This is a well-nourished, well-developed patient, in no apparent distress. SKIN: No rashes, warm and dry HEAD: Atraumatic. Normocephalic. EYES: Pupils equal round and reactive. Extraocular motions intact. No scleral icterus. ENT: Nose without bleeding, or drainage, Airway patent. NECK: Trachea midline. Supple CARDIOVASCULAR: Regular rate and rhythm without murmurs, gallops, or rubs. RESPIRATORY: Fair air entry bilaterally. No wheezes, rales, or rhonchi. GASTROINTESTINAL: Abdomen soft, non-tender, nondistended. Positive bowel sounds MUSCULOSKELETAL: Extremities without clubbing, cyanosis, or edema. Pedal pulses appreciated NEUROLOGICAL: Awake and alert. Moves all extremity. Normal speech.no focal neurological deficit A/P Assessment and Plan 65 years old female admitted with Persistent nausea vomiting and diarrhea, with history of one week postop laparoscopic cholecystectomy Nausea vomiting diarrhea rule out gastroenteritis versus drug side effect ( Imuran), versus urinary lithiasis related versus other etiology Dehydration with Metabolic acidosis with a bicarbonate of 15 Hypokalemia mostly due to diarrhea Elevated bilirubin and alkaline phosphatase Recent laparoscopic cholecystectomy one week ago Left kidney stone on CT scan without hydronephrosis History of breast cancer status post lobectomy chemoradiation in 97 Uncontrolled Hypertension Hyperlipidemia DVT prophylaxis Plan: appreciated GI consultation, status post EGD and colonoscopy which showed esophagitis, gastritis, diverticulosis, biopsy pending Continue iv fluids with KCl for metabolic acidosis, repeat BMP, anion gap dropped from 22-16 stool for culture WBC ova and parasites C. difficileis pending Monitor BMP and electrolytes prednisone resumed by GI,resume Imuran if okay with GI resume her medication for blood pressure she is on hydralazine 50 twice a day and Cardizem 300 CD as well as metoprolol, will add Vasotec and clonidine as needed DT prophylaxis with heparin and SCD Mekhi Paniagua MD Jun 07, 2016 15:24
[2016-06-07 16:32] LABS: BLOOD GAS BASE EXCESS -9.8 mmol/L (-2-2); BLOOD GAS CARBOXYHEMOGLOBIN 2.7 % (0-4); BLOOD GAS HCO3 15 mmol/L (22-26); BLOOD GAS METHEMOGLOBIN 1.9 % (0-2); BLOOD GAS O2 HGB SATURATION 92 % (90-100); BLOOD GAS OXYGEN CONTENT 13.6 Vol % (12.0-20.0); BLOOD GAS PCO2 29 mmHg (38-42); BLOOD GAS PO2 76 mmHG (61-120); BLOOD GAS TOTAL HGB 10.5 G/DL (12.0-16.0); CRITICAL VALUE YES; DRAW SITE LT BRACHIAL; FIO2 21 %; NUMBER OF ARTERIAL PUNCTURES 1; OXYGEN DEVICE ROOM AIR; TEMP CORR TO 98.6
[2016-06-07 16:33] LABS: STAT NO
[2016-06-07] MEDS: PANTOPRAZOLE SODIUM 40 MG VIAL IV PUSH SCH (17:17)
[2016-06-07] MEDS: ATORVASTATIN 20 MG TAB PO SCH (21:58)
[2016-06-08 00:45] VITALS: BP 120/53; PULSE 66; RESP 18; TEMP 98.4; O2SAT 97
[2016-06-08 03:53] VITALS: BP 147/59; PULSE 64; RESP 18; TEMP 98.7; O2SAT 95
[2016-06-08 04:50] LABS: AUTOMATED NEUTROPHIL # 3.3 TH/MM3 (1.8-7.7); BASOPHIL % 0.7 % (0.0-2.0); EOSINOPHIL # 0.1 TH/MM3 (0-0.4); EOSINOPHIL % 2.7 % (0.0-4.0); HEMATOCRIT 28.2 % (35.0-46.0); HEMO FLAGS DIFF FINAL; LYMPH % 20.4 % (9.0-44.0); LYMPHOCYTE # 0.9 TH/MM3 (1.0-4.8); MEAN CELL VOLUME 99.5 FL (80.0-100.0); MEAN CORPUSCULAR HEMOGLOBIN 35.5 PG (27.0-34.0); MEAN CORPUSCULAR HGB CONC 35.7 % (32.0-36.0); MONO % 2.8 % (0.0-8.0); NEUT % 73.4 % (16.0-70.0); PLATELET COUNT 224 TH/MM3 (150-450); RED BLOOD COUNT 2.84 MIL/MM3 (4.00-5.30); RED CELL DISTRIBUTION WIDTH 16.5 % (11.6-17.2); WHITE BLOOD COUNT 4.4 TH/MM3 (4.0-11.0)
[2016-06-08 05:23] LABS: POTASSIUM 3.3 MEQ/L (3.5-5.1)
[2016-06-08 08:36] VITALS: BP 136/60; PULSE 63; RESP 18; TEMP 97.7; O2SAT 98
[2016-06-08] MEDS ORDERED: predniSONE 5 MG TAB PO SCH (09:00)
[2016-06-08 10:50] VITALS: PULSE 67
[2016-06-08] MEDS: hydrALAZINE HCL 50 MG TAB PO SCH (10:51)
[2016-06-08] MEDS: DILTIAZEM-CD 300 MG CAP ER PO SCH (10:51)
[2016-06-08] MEDS: ASPIRIN EC 81 MG TABEC PO SCH (10:52)
[2016-06-08] MEDS: METOPROLOL TARTRATE 100 MG TAB PO SCH (10:52)
[2016-06-08] MEDS: azaTHIOprine 50 MG TAB PO SCH (10:52)
[2016-06-08] MEDS: SODIUM CHLORIDE 0.9% FLUSH 5 ML FLUSH FLUSH SCH (10:53)
[2016-06-08] MEDS: GABAPENTIN 300 MG CAP PO SCH (10:53)
[2016-06-08] MEDS: MORPHINE SULFATE 4 MG/ML INJ IV PUSH PRN (10:59)
[2016-06-08] MEDS: NS + KCL 20 MEQ INJ 1,000 ML IV SCH (11:38)
--- NOTE | 2016-06-08 11:42 | HHI.GIFU ---
Subjective Remarks Resting in bed. Tolerating diet. No pain. Pt does not wish to pursue repeat colonoscopy as inpatient, wants to have done as outpatient. (AnaL aura Truong) Objective Vitals I&O Vital Signs Date Time Temp Pulse Resp B/P Pulse Ox O2 Delivery O2 Flow Rate FiO2 06/08/16 10:50 67 06/08/16 08:36 97.7 63 18 136/60 98 06/08/16 03:53 98.7 64 18 147/59 95 06/08/16 00:45 98.4 66 18 120/53 97 06/07/16 20:00 63 06/07/16 19:43 97.6 65 18 149/52 97 06/07/16 16:30 58 06/07/16 15:54 97.8 62 18 137/58 96 06/07/16 12:30 97.6 67 19 146/56 97 06/07/16 11:52 70 16 141/54 98 06/07/16 11:49 71 18 140/56 94 06/07/16 11:42 98.5 71 16 140/51 98 I/O 06/07/16 06/07/16 06/07/16 06/08/16 06/08/16 06/08/16 07:00 15:00 23:00 07:00 15:00 23:00 Intake Total 425 ml Balance 425 ml Intake IV Total 425 ml # Voids 1 Laboratory Laboratory Tests Test 06/07/16 06/08/16 16:28 04:00 Blood Gas Puncture Site LT BRACHIAL Blood Gas Patient Temperature 98.6 Blood Gas HCO3 15 Blood Gas Base Excess -9.8 Blood Gas Oxygen Saturation 92 Arterial Blood pH 7.34 Arterial Blood Partial 29 Pressure CO2 Arterial Blood Partial 76 Pressure O2 Arterial Blood Oxygen Content 13.6 Arterial Blood 2.7 Carboxyhemoglobin Arterial Blood Methemoglobin 1.9 Blood Gas Hemoglobin 10.5 Oxygen Delivery Device ROOM AIR Blood Gas Inspired Oxygen 21 White Blood Count 4.4 Red Blood Count 2.84 Hemoglobin 10.1 Hematocrit 28.2 Mean Corpuscular Volume 99.5 Mean Corpuscular Hemoglobin 35.5 Mean Corpuscular Hemoglobin 35.7 Concent Red Cell Distribution Width 16.5 Platelet Count 224 Mean Platelet Volume 7.7 Neutrophils (%) (Auto) 73.4 Lymphocytes (%) (Auto) 20.4 Monocytes (%) (Auto) 2.8 Eosinophils (%) (Auto) 2.7 Basophils (%) (Auto) 0.7 Neutrophils # (Auto) 3.3 Lymphocytes # (Auto) 0.9 Monocytes # (Auto) 0.1 Eosinophils # (Auto) 0.1 Basophils # (Auto) 0.0 CBC Comment DIFF FINAL Differential Comment Sodium Level 142 Potassium Level 3.3 Chloride Level 111 Carbon Dioxide Level 21.0 Anion Gap 10 Blood Urea Nitrogen 5 Creatinine 0.64 Estimat Glomerular Filtration 112 Rate Random Glucose 75 Calcium Level 8.3 Imaging Last Impressions Abdomen/Pelvis CT 06/06/16 0305 Signed Impressions: Service Date/Time: May 05:47 - CONCLUSION: Expected postoperative findings. Tiny left kidney stone. Soft tissue mass in the right perianal region Joseph Collins MD Chest X-Ray 06/06/16 0000 Signed Impressions: Service Date/Time: May 05:33 - CONCLUSION: Central line in good position. No pneumothorax. Joseph Collins MD Physical Exam HEENT: Normocephalic; atraumatic; no jaundice. Throat is clear. NECK: Neck is supple, no JVD, no lymphadenopathy. CHEST: CTA. CARDIAC: RRR ABDOMEN: Soft, nondistended, midabdominal tenderness; no hepatosplenomegaly; bowel sounds are present in all four quadrants. EXTREMITIES: No clubbing, cyanosis, or edema. SKIN: Normal; no rash; no jaundice. SWAGE TENDER: No focal deficits; alert and oriented times three (Ana Laura Truong) Assessment and Plan Plan ASSESSMENT: - N/V/D with abdominal pain. She has had symptoms x 1 month and was recently hospitalized for one week at [facility] for the same symptoms and underwent a laparoscopic cholecystectomy last . She was discharged home on Friday but has continued to have the symptoms. She is having an intermittent sharp pain in her mid abdominal area that radiates to her back and chest with associated nausea/vomiting, diarrhea Consisting of 2 loose stools per day with a large amount of mucus but no blood. Of note she is followed by Dr. santana for vasculitis, diagnosed in 2011. She's currently on Imuran and prednisone for this. Her last colonoscopy was many years ago. She was recently hospitalized and on antibiotics. CT scan abdomen and pelvis without IV contrast (06/06/16) revealed expected postoperative findings, tiny left kidney stone, soft tissue mass in the right perianal region Will plan for egd/colonoscopy in am, stool studies. S/P EGD/ Incomplete colonoscopy (06/07/16)----> [place] Class D esophagitis, erythematous gastritis gastric antrum, hiatal hernia, mild diverticulosis sigmoid colon, medium internal hemorrhoids, external hemorrhoids. Recommend repeat colonoscopy on Friday, but patient is refusing and would rather have done as outpatient. - Mild elevation of LFTs. Mild. Of note she recently had a cholecystectomy. She is also on azathioprine for vasculitis - Abn. imaging with soft tissue mass in right perianal region. - Vasculitis. On Imuran and prednisone at home, followed by Dr. Roberts - Hypertension, hyperlipidemia, her primary PLAN: - PAUL - Cont. Azathioprine - Cont. Prednisone - Cont. Protonix - Needs repeat colonoscopy. D/W patient having this Friday. She refuses and would like to have done as outpatient. - Okay to d/c home from GI standpoint with outpatient follow up. - Pt seen and examined by Dr. Henderson and myself and this note is written on his behalf (Ana Laura Truong) Physician Comments Seen and exmained with Ms. Dionne HUDDLESTON, reports diarrhea. very poor prep on colonoscopy, recommend repeat exam on friday but pt. refusing. Wishes to have this done as outpt. Please have fu in gi upon dc. Thank you (Bailey Henderson MD) Ana Laura Truong Jun 08, 2016 11:42 Bailey Henderson MD Jun 08, 2016 16:59
[2016-06-08 12:08] VITALS: BP 145/57; PULSE 68; RESP 18; TEMP 98; O2SAT 97
[2016-06-08] MEDS ORDERED: PANT40P IV PUSH (13:08)
--- NOTE | 2016-06-08 13:12 | HHI.DS ---
Discharge Summary Admission Date Jun 06, 2016 at 06:04 Discharge Date: Jun 08, 2016 Admitting Diagnosis persistent nausea/vomiting, hypokalemia, dehydration, status post ch (1) Nausea & vomiting ICD Code: R11.2 (2) Dehydration ICD Code: E86.0 (3) Gastritis ICD Code: K29.70 Procedures egd colonoscopy Brief History - From Admission 65 years old female who recently had laparoscopic cholecystectomy and [facility] about a week ago due to problem with nausea and vomiting, however patient came back again today with worsening nausea vomiting and diarrhea which is mucus, no fever or chills, some nonspecific abdominal pain on and off. In general patient is not the best historian, she told me this problem with nausea vomiting has been going on for months and for which she had a laparoscopic cholecystectomy. Patient denied dysuria urgency or frequency headache blurry vision chest pain or short of breath, orthopnea PND or leg swelling. In ED CT scan of the abdomen showed Left kidney stone in the right soft tissue mass in the perianal region, her BMP showed hypokalemia and metabolic acidosis with bicarbonate of 15 on my central line has been inserted. She was given a bolus of potassium. When I saw her she was in bed, nausea has been subsided. Patient told me she go to the bathroom about 2-3 times a day but its liquidy and with mucus, she vomited about also 2-3 times a day. I noticed that the patient taking Imuran and prednisone which does have side effect of nausea vomiting and diarrhea and GI hypersensitivity, however patient stated that she takes Imuran and prednisone for generalized aching which is not consistent for these medication indication, she is not aware of any Crohn's ulcerative colitis or rheumatoid arthritis, will try to obtain her record at the same time will obtain GI consultation and we will revise supportive care for her dehydration CBC/BMP: 06/08/16 0400 06/08/16 0400 Significant Findings Laboratory Tests Test 06/06/16 06/06/16 06/06/16 06/07/16 04:00 05:15 19:38 08:23 Urine Ketones 150 mg/dL (NEG) Urine Mucus FEW /lpf (OCC) Red Blood Count 3.44 MIL/MM3 3.14 MIL/MM3 (4.00-5.30) (4.00-5.30) Hematocrit 33.9 % 31.5 % (35.0-46.0) (35.0-46.0) Mean Corpuscular Hemoglobin 34.8 PG 35.4 PG (27.0-34.0) (27.0-34.0) Neutrophils (%) (Auto) 79.8 % 74.9 % (16.0-70.0) (16.0-70.0) Potassium Level 2.7 MEQ/L 3.2 MEQ/L (3.5-5.1) (3.5-5.1) Carbon Dioxide Level 15.3 MEQ/L 17.8 MEQ/L 16.2 MEQ/L (21.0-32.0) (21.0-32.0) (21.0-32.0) Anion Gap 22 MEQ/L (5-15) 17 MEQ/L (5-15) 16 MEQ/L (5-15) Blood Urea Nitrogen 5 MG/DL (7-18) 3 MG/DL (7-18) 5 MG/DL (7-18) Random Glucose 61 MG/DL 62 MG/DL 60 MG/DL (74-106) (74-106) (74-106) Total Bilirubin 1.9 MG/DL (0.2-1.0) Alkaline Phosphatase 143 U/L (45-117) Calcium Level 8.2 MG/DL 8.4 MG/DL (8.5-10.1) (8.5-10.1) Hemoglobin 11.1 GM/DL (11.6-15.3) Mean Corpuscular Volume 100.4 FL (80.0-100.0) Chloride Level 110 MEQ/L (98-107) Test 06/07/16 06/08/16 16:28 04:00 Blood Gas HCO3 15 mmol/L (22-26) Blood Gas Base Excess -9.8 mmol/L (-2-2) Arterial Blood pH 7.34 (7.380-7.420) Arterial Blood Partial 29 mmHg (38-42) Pressure CO2 Blood Gas Hemoglobin 10.5 G/DL (12.0-16.0) Red Blood Count 2.84 MIL/MM3 (4.00-5.30) Hemoglobin 10.1 GM/DL (11.6-15.3) Hematocrit 28.2 % (35.0-46.0) Mean Corpuscular Hemoglobin 35.5 PG (27.0-34.0) Neutrophils (%) (Auto) 73.4 % (16.0-70.0) Lymphocytes # (Auto) 0.9 TH/MM3 (1.0-4.8) Potassium Level 3.3 MEQ/L (3.5-5.1) Chloride Level 111 MEQ/L (98-107) Blood Urea Nitrogen 5 MG/DL (7-18) Calcium Level 8.3 MG/DL (8.5-10.1) PE at Discharge GENERAL: This is a well-nourished, well-developed patient, in no apparent distress. SKIN: No rashes, warm and dry HEAD: Atraumatic. Normocephalic. EYES: Pupils equal round and reactive. Extraocular motions intact. No scleral icterus. ENT: Nose without bleeding, or drainage, Airway patent. NECK: Trachea midline. Supple CARDIOVASCULAR: Regular rate and rhythm without murmurs, gallops, or rubs. RESPIRATORY: Fair air entry bilaterally. No wheezes, rales, or rhonchi. GASTROINTESTINAL: Abdomen soft, non-tender, nondistended. Positive bowel sounds MUSCULOSKELETAL: Extremities without clubbing, cyanosis, or edema. Pedal pulses appreciated NEUROLOGICAL: Awake and alert. Moves all extremity. Normal speech.no focal neurological deficit Hospital Course 65 y/o female admitted with N/V/D with abdominal pain. She has had symptoms x 1 month and was recently hospitalized for one week at [facility] for the same symptoms and underwent a laparoscopic cholecystectomy last . She was discharged home on Friday but has continued to have the symptoms. She is having an intermittent sharp pain in her mid abdominal area that radiates to her back and chest with associated nausea/vomiting, diarrhea Consisting of 2 loose stools per day with a large amount of mucus but no blood. Of note she is followed by Dr. santana for vasculitis, diagnosed in 2011. She's currently on Imuran and prednisone for this. Her last colonoscopy was many years ago. She was recently hospitalized and on antibiotics. CT scan abdomen and pelvis without IV contrast (06/06/16) revealed expected postoperative findings, tiny left kidney stone, soft tissue mass in the right perianal region Will plan for egd/colonoscopy in am, stool studies. S/P EGD/ Incomplete colonoscopy (06/07/16)----> [place] Class D esophagitis, erythematous gastritis gastric antrum, hiatal hernia, mild diverticulosis sigmoid colon, medium internal hemorrhoids, external hemorrhoids. Recommend repeat colonoscopy on Friday, but patient is refusing and would rather have done as outpatient. Mild elevation of LFTs. Mild. Of note she recently had a cholecystectomy. She is also on azathioprine for vasculitis Abn. imaging with soft tissue mass in right perianal region. Vasculitis. On Imuran and prednisone at home, followed by Dr. Roberts Hypertension, hyperlipidemia, her primary Pt Condition on Discharge: Fair Discharge Disposition: Discharge Home Discharge Time: <= 30 minutes Discharge Instructions DIET: Follow Instructions for: Heart Healthy Diet Activities you can perform: Weight Bearing as Manuel Follow up Referrals: Gastroenterology - 1 Week with Bailey Henderson MD New Medications: Pantoprazole Inj (Protonix Inj) 40 Mg Inj 40 MG IV PUSH Q24H gi #30 INJECTION Continued Medications: Aspirin DR (Aspirin 81) 81 Mg Tabdr 81 MG PO DAILY Ref 0 TAB Atorvastatin (Atorvastatin) 20 Mg Tab 20 MG PO HS Cholesterol Management #30 Ref 0 TAB Azathioprine (Azathioprine) 50 Mg Tab 100 MG PO BID Hazardous agent use appropriate precautions for handling and disposal. Immunosuppression #60 Ref 0 TAB Diltiazem ER 24 HR (Cartia Xt) 300 Mg Caper 300 MG PO DAILY #30 Ref 0 CAP Gabapentin (Gabapentin) 600 Mg Tab 600 MG PO DAILY #30 Ref 0 TAB Hydralazine (Hydralazine) 50 Mg Tab 50 MG PO BID Take with a meal Blood Pressure Management Ref 0 TAB Metoprolol Tartrate (Metoprolol Tartrate) 100 Mg Tab 200 MG PO BID #60 Ref 0 TAB Ondansetron Odt (Zofran Odt) 4 Mg Tab 4 MG SL Q6HR PRN Nausea/Vomiting #30 Ref 0 TAB Potassium Chloride ER (Potassium Chloride ER) 10 Meq Tab 10 MEQ PO DAILY Electrolyte Replacement #30 Ref 0 TAB Prednisone (Prednisone) 5 Mg Tab 5 MG PO EVERY OTHER DAY Ref 0 TAB Mekhi Paniagua MD Jun 08, 2016 13:12
== END 2016-06-08 16:01 | disposition home or self-care (01) ==
LOC: NEPE 01:27 → NEDA 06:04 → INTOOBSV 06:04 → NEDH 10:11 → NEPGCP 15:45
PROVIDERS: ADMIT Hospitalist; ATTEND Hospitalist
DX: K21.0 Gastro-esophageal reflux disease with esophagitis (principal); K29.70 Gastritis, unspecified, without bleeding; K25.9 Gastric ulcer, unspecified as acute or chronic, without hemorrhage or perforation; K57.90 Diverticulosis of intestine, part unspecified, without perforation or abscess without bleeding; K44.9 Diaphragmatic hernia without obstruction or gangrene; K64.4 Residual hemorrhoidal skin tags; J44.9 Chronic obstructive pulmonary disease, unspecified; E87.6 Hypokalemia; E87.2 Acidosis; E86.0 Dehydration; I10 Essential (primary) hypertension; E78.5 Hyperlipidemia, unspecified; M19.90 Unspecified osteoarthritis, unspecified site; N20.0 Calculus of kidney; Z85.3 Personal history of malignant neoplasm of breast; Z90.49 Acquired absence of other specified parts of digestive tract
CPT/HCPCS: 00740; 36556; 36600; 43239; 45380; 71010; 74176; 76937; 80048; 80053; 81001; 82805; 83605; 83690; 83735; 84100; 84132; 85025; 88305; 93005; 96374; 96375; 97161; 99285; C9113; G0378; J1644; J2270; J2405; J3480; J7030; J7040; J7500; J7512